=== PATIENT | female | born 2005 | race Caucasian/White ===

== ENCOUNTER 2025-03-01 23:08 | Emergency (ER) | payer OTHER ==
[~2025-03-01] VITALS: Ht 167.6 cm; Wt 113.4 kg
[2025-03-01] MEDS ORDERED: Albuterol Sulf/Ipratropium 3 ML VIAL NEB ONE (23:20)
[2025-03-01] MEDS ORDERED: Dexamethasone Sodium Phospha 20 MG/5 ML VIAL IV ONE (23:20)
[2025-03-01 23:39] LABS: BASO % 0.3 % (0.0-1.0); EOS # 0.1 10*3/uL (0.0-0.4); HEMATOCRIT 37.6 % (37.0-47.0); MEAN CORPUSCULAR HGB 30.4 pg (27.0-31.0); MEAN CORPUSCULAR HGB CONC 33.8 g/dl (33.0-37.0); MEAN PLATELET VOLUME 8.3 fl (9.6-12.3); MONO # 0.5 10*3/uL (0.1-1.0); MONO % 6.5 % (3.0-9.0); NEUT # 3.4 10*3/uL (2.3-7.9); NEUT % 46.6 % (47.0-73.0); PLATELET COUNT AUTOMATED 265 10*3/uL (130-400); RED BLOOD COUNT 4.18 10*6/uL (4.10-5.10); RED CELL DISTRI WIDTH 12.1 % (0-14.5); WHITE BLOOD COUNT 7.4 10*3/uL (4.8-10.8)
[2025-03-01 23:57] LABS: BUN 8 mg/dl (9-23); CHLORIDE 108 mmol/L (98-107); POTASSIUM 2.9 mmol/L (3.4-5.1)
[2025-03-02] MEDS ORDERED: PREDNISONE20 M1 PO (00:52)
[2025-03-02] MEDS ORDERED: Dexamethasone Sodium Phospha 20 MG/5 ML VIAL IV ONE (00:55)
[2025-03-02] MEDS ORDERED: ALBUTEROL 8 GM INHALER INH ONE (00:55)
[2025-03-02] MEDS ORDERED: POTASSIUM CHLO20 MEQ PO (01:02)
== END 2025-03-02 01:10 | disposition home or self-care (01) ==
LOC: ED 23:08
PROVIDERS: Emergency Medicine
DX: J20.9 Acute bronchitis, unspecified (principal); Z20.822 Contact with and (suspected) exposure to COVID-19; E87.6 Hypokalemia

== ENCOUNTER 2025-03-17 21:40 | Emergency (ER) | payer OTHER ==
[~2025-03-17] VITALS: Ht 175.2 cm; Wt 99.8 kg
[~2025-03-17 21:40] MED LIST: POTASSIUM CHLO20 MEQ PO; PREDNISONE20 M1 PO
[2025-03-17] MEDS ORDERED: diphenhydrAMINE hydrochloride 50 MG/ML VIAL IV ONE (22:25)
[2025-03-17] MEDS ORDERED: methylPREDNISolone sod succ 125 MG VIAL IV ONE (22:25)
[2025-03-17] MEDS ORDERED: FAMOTIDINE 50 ML IV ONE (22:25)
== END 2025-03-17 23:13 | disposition home or self-care (01) ==
LOC: ED 21:40
DX: Z79.899 Other long term (current) drug therapy (principal); T78.49XA Other allergy, initial encounter; X58.XXXA Exposure to other specified factors, initial encounter